=== PATIENT | male | born 1990 | race Hispanic/Latino ===

== ENCOUNTER 2017-03-18 10:01 | Emergency (ER) | payer OTHER ==
[2017-03-18 10:05] VITALS: BMI 23.3
[2017-03-18 10:07] VITALS: O2SAT 100
[2017-03-18] MEDS ORDERED: Iohexol 240 (50 ml) PO ONE (10:30)
[2017-03-18] MEDS ORDERED: Sodium Chloride 0.9% 1,000 ML IV STA (10:30)
--- NOTE | 2017-03-18 10:43 | ED PDOC ---
HPI: Abdomen Chief Complaint (Provider): Abdominal pain History Per: Patient History/Exam Limitations: no limitations <Toro Jaimes - Last Filed: 03/18/17 10:33> <Bartolo Beavers - Last Filed: 03/18/17 14:14> Time Seen by Provider: 03/18/17 10:17 Additional Complaint(s): 26 y/o M c/o diffuse abdominal pain, nausea and vomiting since 1 am today. Pt reports not eating anything last night but drinking ~7 bottles of beer. Pt not tolerating PO, feeling fatigue and shivering. Pt denies fever, CP, SOB, diarrhea or trauma. NKDA PMHx: denied. PSHx: denied. FHx: DM 2 in mother's side. SHx: No tobacco or recreational drugs. Alcohol 2x month. (Toro Jaimes) Supervising Attending Note <Toro Jaimes - Last Filed: 03/18/17 10:33> - Supervising Attending Note The Documented history was done by the: Physician Acute Care Assistant The documented physical exam was done by the: Physician Acute Care Assistant The documented procedures were done by the: Physician Acute Care Assistant - Attestation: I have personally seen and examined this patient.: Yes I have fully participated in the care of the patient.: Yes I have reviewed all pertinent clinical information: Yes <Bartolo Beavers - Last Filed: 03/18/17 14:14> - Notes: Notes:: Abd pain and nonbloody vomit after drinking at 1am. No back pain, dyspnea, chest pain. (Bartolo Beavers) Past Medical History - Medical History PMH: No Chronic Diseases - Surgical History Surgical History: No Surg Hx - Family History Family History: States: Diabetes - Social History Current smoker - smoking cessation education provided: No Alcohol: Occasional Drugs: Denies <Toro Jaimes - Last Filed: 03/18/17 10:33> Reviewed: Nursing Documentation, Vital Signs - Medical History PMH: No Chronic Diseases <Bartolo Beavers - Last Filed: 03/18/17 14:14> Vital Signs: Last Vital Signs Temp 98.0 F 03/18/17 10:06 Pulse 86 03/18/17 10:06 Resp 16 03/18/17 10:06 BP 144/89 03/18/17 10:06 Pulse Ox 100 03/18/17 10:54 - Home Medications Home Medications: Ambulatory Orders Medication Instructions Recorded Famotidine [Pepcid] 20 mg PO DAILY PRN #6 tab 03/18/17 Ibuprofen [Motrin] 600 mg PO TID 7 Days tab 03/18/17 - Allergies Allergies/Adverse Reactions: Allergies Allergy/AdvReac Type Severity Reaction Status Date / Time No Known Allergies Allergy Verified 03/18/17 10:30 Review of Systems Constitutional: Negative for: Fever ENT: Negative for: Nose Discharge, Throat Pain Cardiovascular: Negative for: Chest Pain, Palpitations Respiratory: Negative for: Cough, Shortness of Breath, Hemoptysis Gastrointestinal: Positive for: Nausea, Vomiting, Abdominal Pain. Negative for : Diarrhea, Constipation, Hematochezia, Hematemesis Genitourinary Male: Negative for: Dysuria, Frequency, Hematuria Musculoskeletal: Negative for: Neck Pain, Arm Pain Skin: Negative for: Rash Neurological: Negative for: Incoordination, Change in Speech, Confusion Psych: Negative for: Anxiety, Depression, Suicidal ideation <Toro Jaimes - Last Filed: 03/18/17 10:33> Physical Exam - Reviewed Vital Signs Reviewed: Yes - Physical Exam Appears: Positive for: Well, Uncomfortable Head Exam: Positive for: ATRAUMATIC, NORMAL INSPECTION Skin: Positive for: Normal Color, Dry ENT: Positive for: Pharynx Is (dry mucous membranes,). Negative for: Nasal Congestion Neck: Positive for: Normal Cardiovascular/Chest: Positive for: Regular Rate, Rhythm Respiratory: Positive for: Normal Breath Sounds Gastrointestinal/Abdominal: Positive for: Bowel Sounds, Soft, Tenderness. Negative for: Organomegaly ((presominantly on epigastric and RUQ)), Guarding, Rebound <Toro Jaimes - Last Filed: 03/18/17 10:33> - Physical Exam Cardiovascular/Chest: Positive for: Regular Rate, Rhythm Respiratory: Positive for: Normal Breath Sounds Gastrointestinal/Abdominal: Positive for: Soft, Tenderness (diffuse) <Bartolo Beavers - Last Filed: 03/18/17 14:14> - ECG O2 Sat by Pulse Oximetry: 100 <Toro Jaimes - Last Filed: 03/18/17 10:33> - Laboratory Results Result Diagrams: 10/21/17 10:44 03/18/17 10:44 Interpretation Of Abn Labs: 14.5 wbc - ECG Pulse Ox Interpretation: Normal <Bartolo Beavers - Last Filed: 03/18/17 14:14> - Progress ED Course And Treament: 1405: Stable. AAOx3. Pain free. Tolerated PO. No weakness. Fu with pcp. WBC elevation likely vomit and stress reaction related post alcoho abuse. ( Bartolo Beavers) Medical Decision Making <Toro Jaimes - Last Filed: 03/18/17 10:33> <Bartolo Beavers - Last Filed: 03/18/17 14:14> Medical Decision Makin26 y/o M presenting with abdominal pain, nausea and vomiting after ingestion of 7 bottles of beer. Plan: --CT abdomen --CBC --CMP --Lipase --serum alcohol --IV NSS 9% --Zofran --Toradol --Pepcid (Toro Jaimes) Disposition <Toro Jaimes - Last Filed: 03/18/17 10:33> - Patient ED Disposition Is Patient to be Admitted: No Counseled Patient/Family Regarding: Studies Performed, Diagnosis, Need For Followup, Rx Given - Disposition Disposition: Routine/Home Disposition Time: 14:07 <Bartolo Beavers - Last Filed: 03/18/17 14:14> - Clinical Impression Clinical Impression: Abdominal pain - Disposition Referrals: [facility] [Outside] - 03/20/17 Condition: STABLE Additional Instructions: Return if not better in 3 days. Prescriptions: Famotidine [Pepcid] 20 mg PO DAILY PRN #6 tab PRN Reason: Pain Ibuprofen [Motrin] 600 mg PO TID 7 Days tab Instructions: Acute Abdominal Pain (ED) Forms: [employer] (Jamaican)
[2017-03-18 11:04] LABS: BASO % 0.1 % (0.0-2.0); LYMPH # 0.5 K/uL (1.0-4.3); LYMPH % 3.3 % (20.0-40.0); MEAN CELL VOLUME 87.2 fl (80.0-94.0); MEAN CORPUSCULAR HEMOGLOBIN 28.9 pg (27.0-31.0); MEAN CORPUSCULAR HGB CONC 33.2 g/dL (33.0-37.0); MONO # 0.3 K/uL (0.0-0.8); NEUT # 13.7 K/uL (1.8-7.0); NEUT % 94.6 % (50.0-75.0); PLATELET COUNT 159 K/uL (130-400); RED CELL DISTRIBUTION WIDTH 12.9 % (11.5-14.5); WHITE BLOOD COUNT 14.5 K/uL (4.8-10.8)
[2017-03-18 11:13] LABS: ALB/GLOB RATIO 1.7 (1.0-2.1); ALCOHOL SERUM < 10 mg/dl (0-10); ALKALINE PHOSPHATASE 60 U/L (38-126); ALT/SGPT 53 U/L (21-72); AST/SGOT 37 U/L (17-59); BILIRUBIN,TOTAL 0.3 mg/dl (0.2-1.3); BLOOD UREA NITROGEN 14 mg/dl (9-20); CALCIUM 10.1 mg/dL (8.4-10.2); CARBON DIOXIDE 22 mmol/L (22-30); CHLORIDE 104 mmol/L (98-107); GFR AFRICAN-AMERICAN > 60; GLUCOSE,RANDOM 125 mg/dL (75-110); LIPASE 36 U/L (23-300); POTASSIUM 4.6 MMOL/L (3.6-5.0); SODIUM 145 mmol/l (132-148); TOTAL PROTEIN 8.3 G/DL (6.3-8.2)
[2017-03-18] MEDS ORDERED: HYDROmorphone 0.5 mg/0.5 ml ISec IVP STA (12:12)
[2017-03-18] MEDS ORDERED: HYDROmorphone 0.5 mg/0.5 ml ISec ONE (12:14)
[2017-03-18] MEDS ORDERED: Iohexol 300 100 ML IJ ONE (13:10)
[2017-03-18] MEDS ORDERED: Sodium Chloride 0.9% 50 ML IV ONE (13:11)
[2017-03-18 13:44] LABS: NEUTROPHIL 94 % (42-75); TOTAL CELLS COUNTED 100
--- NOTE | 2017-03-18 13:49 | CT ---
PROCEDURE: CT Abdomen and Pelvis with contrast HISTORY: abd pain COMPARISON: None. TECHNIQUE: Contrast dose: Radiation dose: Total exam DLP = 549 mGy-cm. This CT exam was performed using one or more of the following dose reduction techniques: Automated exposure control, adjustment of the mA and/or kV according to patient size, and/or use of iterative reconstruction technique. FINDINGS: LOWER THORAX: Unremarkable. LIVER: Unremarkable. No gross lesion or ductal dilatation. GALLBLADDER AND BILE DUCTS: Unremarkable. PANCREAS: Unremarkable. No gross lesion or ductal dilatation. SPLEEN: Unremarkable. ADRENALS: Unremarkable. No mass. KIDNEYS AND URETERS: Unremarkable. No hydronephrosis. No solid mass. VASCULATURE: Unremarkable. No aortic aneurysm. BOWEL: Unremarkable. No obstruction. No gross mural thickening. APPENDIX: Normal appendix. PERITONEUM: Unremarkable. No free fluid. No free air. LYMPH NODES: Unremarkable. No enlarged lymph nodes. BLADDER: Unremarkable. REPRODUCTIVE: Unremarkable. BONES: No acute fracture. OTHER FINDINGS: None. IMPRESSION: Unremarkable contrast enhanced CT of the abdomen and pelvis.
[2017-03-18 15:09] VITALS: BP 141/72; PULSE 62; RESP 17; TEMP 98.2
== END 2017-03-18 15:05 | disposition home or self-care (01) ==
LOC: H.ER 10:01
DX: R10.9 Unspecified abdominal pain (principal)
CPT/HCPCS: 74177; 80053; 80320; 83690; 85025; 96361; 96374; 96375; 99285; J1170; J1885; J2405; J2765; J7040; Q9966; Q9967

== ENCOUNTER 2017-03-19 02:55 | Inpatient (IN) | payer OTHER ==
[2017-03-19 02:56] VITALS: BMI 23.3
[2017-03-19] MEDS ORDERED: Sodium Chloride 0.9% 1,000 ML IV STA ×2 (03:42→09:09)
--- NOTE | 2017-03-19 03:54 | ED PDOC ---
HPI: Abdomen Time Seen by Provider: 03/19/17 03:36 Chief Complaint (Nursing): Abdominal Pain Chief Complaint (Provider): abdominal pain History Per: Patient History/Exam Limitations: no limitations Onset/Duration Of Symptoms: Hrs, Intermittent Episodes Current Symptoms Are (Timing): Still Present Location Of Pain/Discomfort: Epigastric Quality Of Discomfort: "Pain", Other (describe pain as squeezing in sensation) Associated Symptoms: denies: Nausea, Vomiting, Diarrhea Additional Complaint(s): 26 y/o male, presents to the ED for abdominal pain. Patient reports that the abdominal pain started yesterday after an alcoholic binge. Of note, patient describes pain as a squeezing sensation that comes and goes. The patient denies any abnormal stool, nausea and vomiting. The patient reports last PO intake at 3pm yesterday, states he ate a piece of toast and drank some orange juice. He denies any alcohol use yesterday. He offers no other medical complaints. Of note, the patient was seen in this facility on 03/18/[address] A/P performed, which was negative. Past Medical History Reviewed: Historical Data, Nursing Documentation, Vital Signs Vital Signs: Last Vital Signs Temp 98.5 F 03/19/17 03:39 Pulse 79 03/19/17 03:39 Resp 18 03/19/17 03:39 BP 146/78 03/19/17 03:39 Pulse Ox 97 03/19/17 04:52 - Medical History PMH: No Chronic Diseases - Surgical History Surgical History: No Surg Hx - Family History Family History: States: Diabetes - Home Medications Home Medications: Ambulatory Orders Medication Instructions Recorded Famotidine [Pepcid] 20 mg PO DAILY PRN #6 tab 03/18/17 Ibuprofen [Motrin] 600 mg PO TID 7 Days tab 03/18/17 Dicyclomine [Dicyclomine HCl] 10 mg PO TID #30 cap 03/19/17 - Allergies Allergies/Adverse Reactions: Allergies Allergy/AdvReac Type Severity Reaction Status Date / Time No Known Allergies Allergy Verified 03/19/17 03:38 Review of Systems ROS Statement: Except As Marked, All Systems Reviewed And Found Negative Gastrointestinal: Positive for: Abdominal Pain. Negative for: Nausea, Vomiting , Diarrhea, Constipation Physical Exam - Reviewed Nursing Documentation Reviewed: Yes Vital Signs Reviewed: Yes - Physical Exam Appears: Positive for: Non-toxic, No Acute Distress Cardiovascular/Chest: Positive for: Regular Rate, Rhythm Respiratory: Positive for: Normal Breath Sounds Gastrointestinal/Abdominal: Positive for: Soft, Tenderness (epigastric rectus abdominus muscle tenderness) Neurologic/Psych: Positive for: Alert, Oriented - Laboratory Results Result Diagrams: 03/19/17 04:00 03/19/17 04:00 - ECG O2 Sat by Pulse Oximetry: 97 (RA) Pulse Ox Interpretation: Normal Medical Decision Making Medical Decision Making: Time: 341 Impression: gastritis vs. abdominal wall spasm Plan: --Labs --IV Fluids --Reglan 10mg IVP --Protonix 40mg IVP Time: 450 Patient reports persistent back pain. 0.5 mg Dilaudid ordered. Time: 6[address] pain[address] AP ordered. Patient signed out to Dr. Melendrez pending CT AP, re-assessment. Scribe Attestation: Documented by Sunny Garcia, acting as a scribe for Gregory Macias. Provider Scribe Attestation: All medical record entries made by the Scribe were at my direction and personally dictated by me. I have reviewed the chart and agree that the record accurately reflects my personal performance of the history, physical exam, medical decision making, and the department course for this patient. I have also personally directed, reviewed, and agree with the discharge instructions and disposition. Disposition - Clinical Impression Clinical Impression: Abdominal spasms - Patient ED Disposition Is Patient to be Admitted: Transfer of Care - Disposition Referrals: Harrison Morillo MD [Staff Provider] - Disposition: Transfer of Care Disposition Time: 07:00 Condition: STABLE Prescriptions: Dicyclomine [Dicyclomine HCl] 10 mg PO TID #30 cap Instructions: Abdominal Pain (ED) Forms: [employer] (Puerto Rican) Patient Signed Over To: Raghu Melendrez Handoff Comments: pending CT, reassessment
[2017-03-19 04:13] LABS: BASO % 0.2 % (0.0-2.0); EOS % 0.1 % (0.0-4.0); HEMATOCRIT 42.1 % (35.0-51.0); LYMPH # 1.3 K/uL (1.0-4.3); LYMPH % 10.4 % (20.0-40.0); MEAN CELL VOLUME 86.9 fl (80.0-94.0); MEAN CORPUSCULAR HEMOGLOBIN 29.3 pg (27.0-31.0); MEAN CORPUSCULAR HGB CONC 33.7 g/dL (33.0-37.0); MEAN PLATELET VOLUME 9.8 fl (7.2-11.7); NEUT # 10.4 K/uL (1.8-7.0); NEUT % 81.3 % (50.0-75.0); WHITE BLOOD COUNT 12.8 K/uL (4.8-10.8)
[2017-03-19 04:46] LABS: ALB/GLOB RATIO 1.6 (1.0-2.1); ALKALINE PHOSPHATASE 54 U/L (38-126); ALT/SGPT 42 U/L (21-72); AST/SGOT 31 U/L (17-59); BILIRUBIN,TOTAL 0.6 mg/dl (0.2-1.3); BLOOD UREA NITROGEN 15 mg/dl (9-20); CALCIUM 10.5 mg/dL (8.4-10.2); CARBON DIOXIDE 24 mmol/L (22-30); CHLORIDE 105 mmol/L (98-107); GFR AFRICAN-AMERICAN > 60; GLUCOSE,RANDOM 114 mg/dL (75-110); LIPASE 23 U/L (23-300); POTASSIUM 3.9 MMOL/L (3.6-5.0); SODIUM 144 mmol/l (132-148); TOTAL PROTEIN 7.8 G/DL (6.3-8.2)
[2017-03-19] MEDS ORDERED: HYDROmorphone 0.5 mg/0.5 ml ISec IVP STA (05:08)
[2017-03-19 05:11] LABS: RBC URINE 2 /hpf (0-3); URINE BILIRUBIN NEGATIVE (NEGATIVE); URINE BLOOD NEGATIVE (NEGATIVE); URINE COLOR YELLOW (YELLOW); URINE GLUCOSE (UA) NEG (Normal); URINE KETONE NEGATIVE (NEGATIVE); URINE LEUKOCYTE ESTERASE NEG Leu/uL (Negative); URINE PROTEIN NEGATIVE (NEGATIVE); URINE UROBILINOGEN 0.2-1.0 mg/dL (0.2-1.0); WBC URINE 1 /hpf (0-5)
[2017-03-19] MEDS ORDERED: diaZEpam 10 mg/2 ml Inj IVP ONE (07:19)
[2017-03-19] MEDS ORDERED: Sodium Chloride 0.9% 50 ML IV ONE (07:59)
[2017-03-19] MEDS ORDERED: Iohexol 300 100 ML IJ ONE (07:59)
[2017-03-19] MEDS ORDERED: diaZEpam 10 mg/2 ml Inj ONE (08:28)
--- NOTE | 2017-03-19 09:00 | CT ---
PROCEDURE: CT Abdomen and Pelvis without intravenous contrast HISTORY: epig pain, recurrent COMPARISON: None. TECHNIQUE: Technique. Contrast Dose: 95 cc of Omnipaque 300 Radiation dose: Total exam DLP = 540 mGy-cm. This CT exam was performed using one or more of the following dose reduction techniques: Automated exposure control, adjustment of the mA and/or kV according to patient size, and/or use of iterative reconstruction technique. FINDINGS: LOWER THORAX: Unremarkable. LIVER: Unremarkable. No gross lesion or ductal dilatation. GALLBLADDER AND BILE DUCTS: Sludge with minimal pericholecystic fluid. PANCREAS: Unremarkable. No gross lesion or ductal dilatation. SPLEEN: Unremarkable. ADRENALS: Unremarkable. No mass. KIDNEYS AND URETERS: Unremarkable. No hydronephrosis. No solid mass. VASCULATURE: Unremarkable. No aortic aneurysm. BOWEL: Significant transverse colon dilatation with suspicion for a twisted segment of descending colon tracking medially. No evidence of bowel perforation at this time. APPENDIX: Unremarkable. Normal appendix. PERITONEUM: Unremarkable. No free fluid. No free air. LYMPH NODES: Unremarkable. No enlarged lymph nodes. BLADDER: Unremarkable. REPRODUCTIVE: Unremarkable. BONES: No acute fracture. OTHER FINDINGS: None IMPRESSION: Significant transverse colon dilatation with suspicion for a twisted segment of descending colon tracking medially, suggestive of an atypical volvulus. No evidence of bowel perforation at this time. Small amount of pericholecystic and pelvic fluid.
--- NOTE | 2017-03-19 09:11 | ED PDOC ---
- Laboratory Results Result Diagrams: 03/19/17 04:00 03/19/17 04:00 - ECG O2 Sat by Pulse Oximetry: 98 Disposition - Clinical Impression Clinical Impression: Abdominal spasms, Volvulus - POA Present On Arrival: None - Disposition Referrals: Harrison Morillo MD [Staff Provider] - Disposition: Admitted as In-Patient Disposition Time: 09:10 Condition: FAIR Prescriptions: Dicyclomine [Dicyclomine HCl] 10 mg PO TID #30 cap Instructions: Abdominal Pain (ED) Forms: [employer] (Tajik)
--- NOTE | 2017-03-19 12:05 | CP.PCM.HP ---
History of Present Illness - History of Present Illness History of Present Illness: General Surgery Dr. Rick 26 y/o M w/ no significant PMHx presents to the ED w/ worsening abd pain and vomiting. Per ED documentation and pt, pt went out Monday and consumed ~ 7beers. Monday/Monday morning, pt developed severe abd pain, NBNB vomting, and chills which prompted pt to come to the ED for evaluation. On Monday, pt was given pain medication and anti-emetic, symptoms resolved, and pt was discharged home. Pt states pain and vomiting return Monday/ Monday. Pt has never previously had this pain. Pain is diffuse though worse in upper abd w/ concurrent back pain. Pt has had multiple episodes NBNB vomitus. Pt admits to chills but denies fever, diarrhea, constipation. Pt reports last bowel mvt Monday which was normal consistency. PMHx: eczema Meds: multivitamin NKDA PSHx: denies SHx: denies tobacco, drug use. social EtOH FHx: DM2, HTN, brain cancer; father had colon resection though not sure why Present on Admission - Present on Admission Any Indicators Present on Admission: No Review of Systems - Review of Systems All systems: reviewed and no additional remarkable complaints except (see HPI) Past Patient History - Past Social History Smoking Status: Never Smoked - PSYCHIATRIC Hx Substance Use: No - SURGICAL HISTORY Hx Surgeries: No - ANESTHESIA Hx Anesthesia: No Meds Allergies/Adverse Reactions: Allergies Allergy/AdvReac Type Severity Reaction Status Date / Time No Known Allergies Allergy Verified 03/19/17 03:38 Physical Exam - Constitutional Appears: Non-toxic, No Acute Distress - Head Exam Head Exam: NORMAL INSPECTION - Eye Exam Eye Exam: Normal appearance - ENT Exam ENT Exam: Mucous Membranes Moist Additional comments: NGT in place. Non-bilious drainage - Respiratory Exam Respiratory Exam: NORMAL BREATHING PATTERN. absent: Accessory Muscle Use, Respiratory Distress - Cardiovascular Exam Cardiovascular Exam: absent: Bradycardia, Tachycardia - GI/Abdominal Exam GI & Abdominal Exam: Distended (minimal), Soft, Tenderness (minimal TTP manny- umbilical/epigastric). absent: Firm, Guarding, Rebound, Rigid Additional comments: exam hindered by pt inability to lay flat 2/2 pain - Extremities Exam Extremities exam: Positive for: normal inspection - Back Exam Back exam: NORMAL INSPECTION - Neurological Exam Neurological exam: Alert, Oriented x3 - Psychiatric Exam Psychiatric exam: Normal Affect, Normal Mood - Skin Skin Exam: Dry, Intact, Normal Color, Warm Results - Vital Signs Recent Vital Signs: Last Vital Signs Temp 98.9 F 03/19/17 07:25 Pulse 60 03/19/17 07:25 Resp 19 03/19/17 07:25 BP 141/81 03/19/17 07:25 Pulse Ox 98 03/19/17 09:11 - Labs Result Diagrams: 03/19/17 04:00 03/19/17 04:00 Labs: Laboratory Results - last 24 hr 03/19/17 03/19/17 03/19/17 04:00 04:00 05:01 WBC 12.8 H RBC 4.85 Hgb 14.2 Hct 42.1 MCV 86.9 MCH 29.3 MCHC 33.7 RDW 13.0 Plt Count 158 MPV 9.8 Neut % (Auto) 81.3 H Lymph % (Auto) 10.4 L [place] % (Auto) 8.0 Eos % (Auto) 0.1 Baso % (Auto) 0.2 Neut # 10.4 H Lymph # 1.3 [place] # 1.0 H Eos # 0.0 Baso # 0.0 Sodium 144 Potassium 3.9 Chloride 105 Carbon Dioxide 24 Anion Gap 18 BUN 15 Creatinine 0.6 L Est GFR ( Amer) > 60 Est GFR (Non-Af Amer) > 60 Random Glucose 114 H Calcium 10.5 H Total Bilirubin 0.6 AST 31 ALT 42 Alkaline Phosphatase 54 Total Protein 7.8 Albumin 4.8 Globulin 3.0 Albumin/Globulin Ratio 1.6 Lipase 23 Urine Color Yellow Urine Clarity Clear Urine pH 6.0 Ur Specific [place] 1.016 Urine Protein Negative Urine Glucose (UA) Neg Urine Ketones Negative Urine Blood Negative Urine Nitrate Negative Urine Bilirubin Negative Urine Urobilinogen 0.2-1.0 Ur Leukocyte Esterase Neg Urine RBC (Auto) 2 Urine Microscopic WBC 1 - Imaging and Cardiology CT scan - abdomen Status: Image reviewed by me, Report reviewed by me Abdominal x-ray Status: Image reviewed by me, Report reviewed by me Assessment & Plan - Assessment and Plan (Free Text) Assessment: 26 y/o M w/ no significant PMHx admitted for colon volvulus seen on CT and obstructive series - NPO, IVF - NGT to low, continuous suction - Dilaudid 1mg Q3 PRN pain - Zofran 4mg Q4 PRN nausea - consent obtained - discussed risks and benefits of surgery, pt demonstrated understanding and was given the opportunity to ask questions which were answered. - Further recs per Dr. Prabhjot Agarwal DO PGY2
[2017-03-19] MEDS ORDERED: HYDROmorphone 0.5 mg/0.5 ml ISec IVP PRN ×2 (12:22→16:15)
[2017-03-19] MEDS ORDERED: Lactated Ringer's 1,000 ML IV SCH (12:30)
[2017-03-19] MEDS ORDERED: Bupivacaine 0.5% Inj(30mL) ONE (13:15)
[2017-03-19] MEDS ORDERED: ceFAZolin IV 1 gm in Dextrose 2 GM/100 ML BAG IVPB ONE (13:15)
[2017-03-19] MEDS ORDERED: Lidocaine 1% Inj (20ml) ONE (13:15)
[2017-03-19] MEDS ORDERED: SENSORCAINE 0.5% W/EPINEPHRINE 50ML MDV IJ ONE (13:17)
[2017-03-19] MEDS ORDERED: Succinylcholine 200 mg/10 ml Inj IV ONE (13:34)
[2017-03-19] MEDS ORDERED: Rocuronium 10 mg/ml (5 ml) ONE (13:34)
[2017-03-19] MEDS ORDERED: Etomidate 20 mg/10ml Inj IV ONE (13:38)
[2017-03-19] MEDS ORDERED: Propofol 10 mg/ml Inj (20 ML) ONE (13:39)
[2017-03-19] MEDS ORDERED: Lidocaine 4% (Laryng-O-Jet) Kit MM ONE (13:40)
[2017-03-19] MEDS ORDERED: Sodium Chloride 0.9% 1,000 ML IV ONE ×2 (14:10→15:10)
[2017-03-19] MEDS ORDERED: Midazolam 2 MG/2 ML VIAL ONE (14:12)
[2017-03-19] MEDS ORDERED: Dexamethasone 4 mg/1 ml ONE (15:27)
[2017-03-19] MEDS ORDERED: Neostigmine Methylsulfate 3mg/3ml Syringe IV ONE (15:31)
[2017-03-19] MEDS ORDERED: Neostigmine Methylsulfate 2 MG/2 ML ML IV ONE (15:31)
--- NOTE | 2017-03-19 15:44 | RAD ---
HISTORY: volvulus COMPARISON: No prior. FINDINGS: BOWEL: Distended splenic flexure compatible with a distal transverse colon/descending colon volvulus. BONES: Normal. OTHER FINDINGS: None. IMPRESSION: Distended splenic flexure compatible with a distal transverse colon/descending colon volvulus.
[2017-03-19] MEDS: Lactated Ringer's 1,000 ML IV SCH ×2 (16:11→21:00)
--- NOTE | 2017-03-19 16:16 | PCM.SURG1 ---
Surgeon's Initial Post Op Note - Surgeon's Notes Surgeon: Dr. Rick Mortgage Loan Closer: Dr. Agarwal PGY2 Type of Anesthesia: General Endo Pre-Operative Diagnosis: cecal volvulus Operative Findings: see dictation Post-Operative Diagnosis: same Operation Performed: exploratory laparotomy, right hemicolectomy w/ ileotransverse anastomosis Specimen/Specimens Removed: right colon Estimated Blood Loss: EBL {In ML}: 200 Blood Products Given: N/A Drains Used: No Drains Post-Op Condition: Good Date of Surgery/Procedure: 03/19/17 Time of Surgery/Procedure: 14:30
--- NOTE | 2017-03-19 16:22 | PCM.ANESB5 ---
Transverse Abdominis Block - Transverse Abdominis Plane Date of Procedure: 03/19/17 Anesthesiologist: Karis Pre-Procedure Diagnosis: Sigmoid Volvulus Post-Procedure Diagnosis: Same Procedure Performed: Transverse Abdominis Plane Nerve Block Left, Transverse Abdominis Plane Nerve Block Right - Procedure Transverse Abdominis Plane Nerve Block: The procedure was explained to the patient that it is for post-operative pain management and would be performed after surgery. Consent was obtained prior to surgery after a thorough discussion with the patient regarding the benefits and possible complications of transverse abdominis plane block. After the surgery had concluded and before the patient emerged from general anesthesia, time-out was held with the circulating nurse to re-confirm the appropriate block. With the patient in supine position, the ultrasound probe was placed transverse to the abdominal wall at the mid-axillary line above the iliac crest of the appropriate side. The skin, subcutaneous tissue, fat, external oblique muscle, internal oblique muscle, and the transverse abdominis muscle were identified. The general area of the block site was then prepped with Chloraprep. At this point, a # 21-gauge Stimuplex 4-inch needle was inserted posterior to and in plane with the ultrasound probe and directed anteriorly. Needle was advanced under direct ultrasound visualization until it reached the plane between the internal oblique and transverse abdominis muscles. After appropriate placement, 2mL of local anesthetic solution was injected. When the transverse abdominis plane was observed expanding in an ellipsoid way, the rest of the solution was slowly injected. A total of ____30__ mL of __0.25___ % __ bupivicaine with 1:200,000 epinephrine was used for this block. The needle was then removed and sterile dressing was applied. Similarly, the same procedure was performed on the other side using the same medications. The patient had stable vital signs throughout and had no untoward complications after emergence from general anesthesia in the recovery room.
[2017-03-19] MEDS ORDERED: Influenza Vaccine 18yr & older 0.5 ML/45 MCG SYR IM ONE (18:32)
[2017-03-19] MEDS: ceFAZolin IV 1 gm in Dextrose 1 GM/50 ML BAG IVPB SCH (20:13)
[2017-03-20] MEDS: Lactated Ringer's 1,000 ML IV SCH ×3 (02:34→05:25)
[2017-03-20 05:54] LABS: BASO % 0.1 % (0.0-2.0); HEMATOCRIT 34.8 % (35.0-51.0); LYMPH # 1.1 K/uL (1.0-4.3); LYMPH % 9.6 % (20.0-40.0); MEAN CELL VOLUME 86.8 fl (80.0-94.0); MEAN CORPUSCULAR HEMOGLOBIN 29.4 pg (27.0-31.0); MEAN CORPUSCULAR HGB CONC 33.8 g/dL (33.0-37.0); MEAN PLATELET VOLUME 9.9 fl (7.2-11.7); MONO # 1.1 K/uL (0.0-0.8); MONO % 9.9 % (0.0-10.0); NEUT # 8.9 K/uL (1.8-7.0); NEUT % 80.4 % (50.0-75.0); RED CELL DISTRIBUTION WIDTH 12.7 % (11.5-14.5)
[2017-03-20 06:11] LABS: ALB/GLOB RATIO 1.5 (1.0-2.1); ALKALINE PHOSPHATASE 34 U/L (38-126); ALT/SGPT 45 U/L (21-72); AST/SGOT 22 U/L (17-59); BILIRUBIN,TOTAL 1.2 mg/dl (0.2-1.3); BLOOD UREA NITROGEN 12 mg/dl (9-20); CALCIUM 9.4 mg/dL (8.4-10.2); CARBON DIOXIDE 25 mmol/L (22-30); CHLORIDE 103 mmol/L (98-107); GFR AFRICAN-AMERICAN > 60; GLUCOSE,RANDOM 126 mg/dL (75-110); POTASSIUM 4.1 MMOL/L (3.6-5.0); SODIUM 139 mmol/l (132-148); TOTAL PROTEIN 6.3 G/DL (6.3-8.2)
[2017-03-20] MEDS ORDERED: HYDROmorphone 0.5 mg/0.5 ml ISec IVP PRN (07:42)
--- NOTE | 2017-03-20 07:46 | CP.PCM.PN ---
Subjective - Date & Time of Evaluation Date of Evaluation: 03/20/17 Time of Evaluation: 06:45 - Subjective Subjective: Patient seen and examined this morning. Patient did not void, was straight cath , 950ccs of urine drained. Patient reports feeling better. Abdominal incision site is c/d/i. No acute events over night. Review of vitals is stable. Objective - Vital Signs/Intake and Output Vital Signs (last 24 hours): Temp Pulse Resp BP Pulse Ox 98.8 F 72 19 137/81 99 03/20/17 05:00 03/20/17 05:00 03/20/17 05:00 03/20/17 05:00 03/20/17 05:00 - Medications Medications: Current Medications Famotidine (Pepcid) 40 mg IVP DAILY [facility] Last Admin: 03/19/17 22:01 Dose: 40 mg Hydromorphone HCl (Dilaudid) 0.5 mg IVP Q4 PRN PRN Reason: Pain, severe (8-10) Lactated Ringer's (Lactated Ringer's) 1,000 mls @ 125 mls/hr IV .Q8H [facility] Last Admin: 03/20/17 05:25 Dose: Not Given Cefazolin Sodium/Dextrose (Ancef Iv 1 Gm Duplex) 1 gm in 50 mls @ 50 mls/hr IVPB Q12 [facility]ASIA PRN Reason: Protocol Stop: 03/20/17 21:59 Last Admin: 03/19/17 20:13 Dose: 50 mls/hr Ondansetron HCl (Zofran Inj) 4 mg IVP Q4 PRN PRN Reason: Nausea/Vomiting Oxycodone/Acetaminophen (Percocet 5/325 Mg Tab) 1 tab PO Q4 PRN PRN Reason: Pain, moderate (4-7) Stop: 03/23/17 07:42 - Labs Labs: 03/20/17 05:15 03/20/17 05:15 - Constitutional Appears: No Acute Distress - Head Exam Head Exam: NORMOCEPHALIC - Eye Exam Eye Exam: Normal appearance - ENT Exam ENT Exam: Mucous Membranes Moist - Respiratory Exam Respiratory Exam: NORMAL BREATHING PATTERN - Cardiovascular Exam Cardiovascular Exam: +S1, +S2 - GI/Abdominal Exam GI & Abdominal Exam: Soft. absent: Firm, Guarding, Rigid - Neurological Exam Neurological Exam: Alert, Awake, Oriented x3 - Psychiatric Exam Psychiatric exam: Normal Mood - Skin Skin Exam: Dry, Intact, Warm Assessment and Plan - Assessment and Plan (Free Text) Assessment: 26M w/ cecal volvulus s/p exploratory laparotomy w/ right hemicolectomy and ileotransverse anastomosis POD1 -Liquid diet -Abx -PO analgesic -Anti-emetics -Monitor urine output -OOB to chair -Encourage Incentive spirometer use and ambulation -DVT/GI ppx -D/w Dr. Prabhjot Khan PGY2
[2017-03-20] MEDS ORDERED: Potassium Ch 20mEq in D5-1/2NS 1,000 ML IV SCH (08:00)
[2017-03-20] MEDS: ceFAZolin IV 1 gm in Dextrose 1 GM/50 ML BAG IVPB SCH ×2 (08:19→20:32)
[2017-03-20] MEDS: Oxycodone/Acetaminophen 5/325 mg Tab PO PRN ×4 (08:28→22:42)
[2017-03-21] MEDS ORDERED: Potassium Ch 20mEq in D5-1/2NS 1,000 ML IV ONE (04:15)
[2017-03-21] MEDS: Oxycodone/Acetaminophen 5/325 mg Tab PO PRN ×3 (06:50→19:57)
[2017-03-21 07:00] LABS: BASO % 0.3 % (0.0-2.0); EOS # 0.1 K/uL (0.0-0.7); EOS % 0.9 % (0.0-4.0); HEMATOCRIT 29.4 % (35.0-51.0); LYMPH # 1.8 K/uL (1.0-4.3); LYMPH % 23.1 % (20.0-40.0); MEAN CELL VOLUME 86.6 fl (80.0-94.0); MEAN CORPUSCULAR HEMOGLOBIN 29.6 pg (27.0-31.0); MEAN CORPUSCULAR HGB CONC 34.2 g/dL (33.0-37.0); MEAN PLATELET VOLUME 9.7 fl (7.2-11.7); MONO # 0.9 K/uL (0.0-0.8); MONO % 11.3 % (0.0-10.0); NEUT # 5.1 K/uL (1.8-7.0); NEUT % 64.4 % (50.0-75.0); RED CELL DISTRIBUTION WIDTH 12.7 % (11.5-14.5); WHITE BLOOD COUNT 7.9 K/uL (4.8-10.8)
[2017-03-21 07:09] LABS: BLOOD UREA NITROGEN 10 mg/dl (9-20); CALCIUM 8.5 mg/dL (8.4-10.2); CARBON DIOXIDE 29 mmol/L (22-30); CHLORIDE 103 mmol/L (98-107); GFR AFRICAN-AMERICAN > 60; GLUCOSE,RANDOM 110 mg/dL (75-110); POTASSIUM 3.8 MMOL/L (3.6-5.0); SODIUM 139 mmol/l (132-148)
--- NOTE | 2017-03-21 07:22 | CP.PCM.PN ---
Subjective - Date & Time of Evaluation Date of Evaluation: 03/21/17 Time of Evaluation: 06:50 - Subjective Subjective: Patient seen and examined this morning. No acute events over night. Has not passed flatus. Tolerating liquid diet. Abdominal incision site is c/d/i. Objective - Vital Signs/Intake and Output Vital Signs (last 24 hours): Temp Pulse Resp BP Pulse Ox 98.1 F 79 18 135/74 97 03/21/17 00:00 03/21/17 00:00 03/21/17 00:00 03/21/17 00:00 03/21/17 00:00 Intake and Output: 03/21/17 03/21/17 06:59 18:59 Intake Total 1450 Output Total 1200 Balance 250 - Medications Medications: Current Medications Famotidine (Pepcid) 40 mg IVP DAILY [facility] Last Admin: 03/20/17 11:55 Dose: 40 mg Heparin Sodium (Porcine) (Heparin) 5,000 units SC Q12 KASIA PRN Reason: Protocol Last Admin: 03/20/17 20:32 Dose: 5,000 units Hydromorphone HCl (Dilaudid) 0.5 mg IVP Q4 PRN PRN Reason: Pain, severe (8-10) Last Admin: 03/20/17 18:21 Dose: 0.5 mg Ondansetron HCl (Zofran Inj) 4 mg IVP Q4 PRN PRN Reason: Nausea/Vomiting Oxycodone/Acetaminophen (Percocet 5/325 Mg Tab) 1 tab PO Q4 PRN PRN Reason: Pain, moderate (4-7) Stop: 03/23/17 07:42 Last Admin: 03/21/17 06:50 Dose: 1 tab - Labs Labs: 03/20/17 05:15 03/21/17 06:15 - Constitutional Appears: No Acute Distress - Head Exam Head Exam: NORMOCEPHALIC - Eye Exam Eye Exam: Normal appearance - ENT Exam ENT Exam: Mucous Membranes Moist - Respiratory Exam Respiratory Exam: NORMAL BREATHING PATTERN - Cardiovascular Exam Cardiovascular Exam: +S1, +S2 - GI/Abdominal Exam GI & Abdominal Exam: Soft - Neurological Exam Neurological Exam: Alert, Awake, Oriented x3 - Psychiatric Exam Psychiatric exam: Normal Mood - Skin Skin Exam: Dry, Intact, Warm Assessment and Plan - Assessment and Plan (Free Text) Assessment: 26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 Prabhjot Khan PGY2
[2017-03-21] MEDS ORDERED: Potassium Chloride 20 mEq ER Tab PO ONE (07:54)
--- NOTE | 2017-03-21 09:22 | OP ---
PROCEDURE DATE: 03/19/2017 SURGEON: Susan Rick MD. LAY MIDWIFE: Dr. Agarwal. TYPE OF ANESTHESIA: General. ANESTHESIA ADMINISTERED BY: Marquise Dyson MD. PREOPERATIVE DIAGNOSIS: Cecal volvulus. POSTOPERATIVE DIAGNOSIS: Cecal volvulus. PROCEDURE: Exploratory laparotomy, right hemicolectomy with ileotransverse anastomosis. DESCRIPTION OF OPERATION: With the patient in the supine position under adequate general anesthesia, the abdomen was prepped and draped in the usual sterile manner. A midline incision was made, centered on the umbilicus and taken down through the subcutaneous tissue. The peritoneal cavity was entered in the midline. Upon entering the peritoneal cavity, a dilated colon loop was identified in the left upper quadrant. There was no suspicious fluid noted within the peritoneal cavity. The loop was gently delivered into the wound and noted to contain cecum which was towards counterclockwise into the right upper quadrant. The cecum was partially detorsed and it was noted that a second site of obstruction was located just below the hepatic flexure where omental bands were contributing to the obstruction. These bands were lysed, allowing full detorsion of the cecum and allowing a small amount of fluid and gas to be passed beyond this area of obstruction. Further evaluation of the colon noted normal position of the hepatic and splenic flexures; however, the transverse colon was noted to be moderately elongated with the midportion of the transverse colon somewhat fused into a hairpin configuration. The small bowel was not dilated and the distal colon from the transverse to the rectum was also collapsed and contained soft inspissated stool. All omental bands were lysed to fully free the colon and sites of resection were identified just to the right of the middle colic artery and at the terminal ileum. In both areas, the bowel was divided with a TONYA stapler and after medializing the remainder of the colon, the mesentery was serially clamped, divided, and ligated with 2-0 Vicryl ties and the specimen was removed. The end of the transverse colon was noted to be slightly dusky and an additional inch of transverse colon was resected with the TONYA and anastomosis was then performed in a [id number] fashion from the terminal ileum to the transverse colon using the TONYA stapler with the insertion site closed with a TA-30 stapler. The mesentery was then approximated with running suture of 2-0 Vicryl and after hemostasis, closure was performed with running fascial suture of double-stranded #1 PDS and the skin was closed with mayda. Dry sterile dressings were applied. The patient tolerated the procedure well and transferred to recovery room in stable condition. Estimated blood loss for the procedure was 200 mL. Susan Rick MD
[2017-03-21] MEDS: Potassium Ch 20mEq in D5-1/2NS 1,000 ML IV SCH (17:06)
[2017-03-22] MEDS: Potassium Ch 20mEq in D5-1/2NS 1,000 ML IV SCH (00:57)
[2017-03-22 08:00] VITALS: BP 126/77; PULSE 65; RESP 20; TEMP 98.2; O2SAT 100
--- NOTE | 2017-03-22 10:42 | CP.PCM.DIS ---
Provider - Provider Date of Admission: 03/19/17 10:16 Attending physician: Susan Rick MD Time Spent in preparation of Discharge (in minutes): 40 Diagnosis - Discharge Diagnosis (1) Volvulus Status: Acute Priority: High (2) Abdominal pain Status: Acute Priority: High (3) DVT prophylaxis Status: Acute Hospital Course - Lab Results Lab Results: Most Recent Lab Values WBC 7.9 K/uL (4.8-10.8) 03/21/17 06:15 RBC 3.39 Mil/uL (4.40-5.90) L 03/21/17 06:15 Hgb 10.0 g/dL (12.0-18.0) L 03/21/17 06:15 Hct 29.4 % (35.0-51.0) L 03/21/17 06:15 MCV 86.6 fl (80.0-94.0) 03/21/17 06:15 MCH 29.6 pg (27.0-31.0) 03/21/17 06:15 MCHC 34.2 g/dL (33.0-37.0) 03/21/17 06:15 RDW 12.7 % (11.5-14.5) 03/21/17 06:15 Plt Count 96 K/uL (130-400) L D 03/21/17 06:15 MPV 9.7 fl (7.2-11.7) 03/21/17 06:15 Neut % (Auto) 64.4 % (50.0-75.0) 03/21/17 06:15 Lymph % (Auto) 23.1 % (20.0-40.0) 03/21/17 06:15 Stone % (Auto) 11.3 % (0.0-10.0) H 03/21/17 06:15 Eos % (Auto) 0.9 % (0.0-4.0) 03/21/17 06:15 Baso % (Auto) 0.3 % (0.0-2.0) 03/21/17 06:15 Neut # 5.1 K/uL (1.8-7.0) 03/21/17 06:15 Lymph # 1.8 K/uL (1.0-4.3) 03/21/17 06:15 Stone # 0.9 K/uL (0.0-0.8) H 03/21/17 06:15 Eos # 0.1 K/uL (0.0-0.7) 03/21/17 06:15 Baso # 0.0 K/uL (0.0-0.2) 03/21/17 06:15 Sodium 139 mmol/l (132-148) 03/21/17 06:15 Potassium 3.8 MMOL/L (3.6-5.0) 03/21/17 06:15 Chloride 103 mmol/L (98-107) 03/21/17 06:15 Carbon Dioxide 29 mmol/L (22-30) 03/21/17 06:15 Anion Gap 11 (10-20) 03/21/17 06:15 BUN 10 mg/dl (9-20) 03/21/17 06:15 Creatinine 0.6 mg/dL (0.8-1.5) L 03/21/17 06:15 Est GFR ( Amer) > 60 03/21/17 06:15 Est GFR (Non-Af Amer) > 60 03/21/17 06:15 POC Glucose (mg/dL) 114 mg/dL (65-110) H 03/19/17 16:24 Random Glucose 110 mg/dL (75-110) 03/21/17 06:15 Calcium 8.5 mg/dL (8.4-10.2) 03/21/17 06:15 Total Bilirubin 1.2 mg/dl (0.2-1.3) 03/20/17 05:15 AST 22 U/L (17-59) 03/20/17 05:15 ALT 45 U/L (21-72) 03/20/17 05:15 Alkaline Phosphatase 34 U/L (38-126) L D 03/20/17 05:15 Total Protein 6.3 G/DL (6.3-8.2) 03/20/17 05:15 Albumin 3.7 g/dL (3.5-5.0) 03/20/17 05:15 Globulin 2.5 gm/dL (2.2-3.9) 03/20/17 05:15 Albumin/Globulin Ratio 1.5 (1.0-2.1) 03/20/17 05:15 Lipase 23 U/L (23-300) 03/19/17 04:00 Urine Color Yellow (YELLOW) 03/19/17 05:01 Urine Clarity Clear (Clear) 03/19/17 05:01 Urine pH 6.0 (5.0-8.0) 03/19/17 05:01 Ur Specific [place] 1.016 (1.003-1.030) 03/19/17 05:01 Urine Protein Negative mg/dL (NEGATIVE) 03/19/17 05:01 Urine Glucose (UA) Neg mg/dL (Normal) 03/19/17 05:01 Urine Ketones Negative mg/dL (NEGATIVE) 03/19/17 05:01 Urine Blood Negative (NEGATIVE) 03/19/17 05:01 Urine Nitrate Negative (NEGATIVE) 03/19/17 05:01 Urine Bilirubin Negative (NEGATIVE) 03/19/17 05:01 Urine Urobilinogen 0.2-1.0 mg/dL (0.2-1.0) 03/19/17 05:01 Ur Leukocyte Esterase Neg Audra/uL (Negative) 03/19/17 05:01 Urine RBC (Auto) 2 /hpf (0-3) 03/19/17 05:01 Urine Microscopic WBC 1 /hpf (0-5) 03/19/17 05:01 Blood Type O POSITIVE 03/19/17 14:06 Blood Type Confirm O POSITIVE 03/19/17 14:18 Antibody Screen Negative 03/19/17 14:06 Crossmatch See Detail 03/19/17 14:06 BBK History Checked No verified bt 03/19/17 14:06 - Hospital Course Hospital Course: Patient is a 26M who presented to the ED with 2 days of intermittent abdominal pain associated with back pain, nausea, and vomiting. Nasogastric tube was placed and CT performed showing a bowel volvulus. Patient was taken to the OR for an exploratory lap, whiched showed a cecal volvulus. A right hemicolectomy with an anastamosis of the ileum to the transverse colon was performed without complication. Patient tolerated the procedure well, and on post op day 3 he was tolerating pain on PO pain medication, a soft diet, passing flatus, and ambulating well. Discharge and follow up instructions were discussed with the patient who expressed understanding and agreed to the plan of discharge to home with outpatient follow up with Dr. Rick and his PMD. Patietnt was discharged to home without complication. For full hospital course please refer to full chart Discharge Exam - Head Exam Head Exam: ATRAUMATIC, NORMOCEPHALIC - Eye Exam Eye Exam: Normal appearance. absent: Conjunctival injection, Scleral icterus - ENT Exam ENT Exam: Mucous Membranes Moist, Normal Oropharynx - Respiratory Exam Respiratory Exam: NORMAL BREATHING PATTERN. absent: Accessory Muscle Use, UNREMARKABLE - Cardiovascular Exam Cardiovascular Exam: RRR - GI/Abdominal Exam GI & Abdominal Exam: Soft, Tenderness (RUQ, LLQ). absent: Distended Additional comments: midline incision well approximated with mayda, no erythema or drainage - Extremities Exam Additional comments: no calf tenderness or pedal edema, pedal pulses palpable - Neurological Exam Neurological exam: Alert, Oriented x3 - Psychiatric Exam Psychiatric exam: Normal Affect, Normal Mood - Skin Skin Exam: Dry, Normal Color, Warm Discharge Plan - Discharge Medications Prescriptions: Ketorolac Tromethamine [Toradol] 10 mg PO Q6 PRN #20 tab PRN Reason: Pain, Moderate (4-7) - Follow Up Plan Condition: FAIR Disposition: HOME/ ROUTINE Instructions: Colectomy (DC), Exploratory Laparotomy (DC), Acute Abdominal Pain (DC), Acute Abdominal Pain (GEN) Additional Instructions: Follow up with Dr. Rick in her office in 2 weeks. Follow up with your primary physician within the next week You may resume normal daily activities, but do not lift >10 pounds for [address] Rick clears you to do so. You may shower but do not soak the incision--do not take baths or swim Call Dr. Rick's office or return to the ER for persistent fever >100.4, severe pain, nausea, or vomiting, drainage from the incision, or any other concerning symptoms Stay active, ambulating multiple times daily and using the incentive spirometer to take deep breaths Referrals: Susan Rick MD [Staff Provider] - Harrison Morillo MD [Staff Provider] -
== END 2017-03-22 15:08 | disposition home or self-care (01) | DRG 331 ==
LOC: H.ER 02:55 → H.ERHOLD 10:16 → H.MEDSURG1 17:37
PROVIDERS: ADMIT Specialist; ATTEND Specialist
PROC: 3E0T3BZ Introduction of Anesthetic Agent into Peripheral Nerves and Plexi, Percutaneous Approach (ICD-10-PCS; 2017-03-19)
PROC: 0DTF0ZZ Resection of Right Large Intestine, Open Approach (ICD-10-PCS; principal; 2017-03-19 13:45)
PROC: 3E0234Z Introduction of Serum, Toxoid and Vaccine into Muscle, Percutaneous Approach (ICD-10-PCS; 2017-03-19 13:45)
DX: K56.2 Volvulus (principal); Z23 Encounter for immunization